=== PATIENT | female | born 1955 | race Two or more races ===

== ENCOUNTER → 2016-06-11 | Day surgery (SDC) | payer OTHER ==
[~2016-06-11] VITALS: Ht 157.5 cm; Wt 62.0 kg
[~2016-06-11] MED LIST: *LABETALOL HCL 100 MG/20 ML VIAL PERIprocedural Use ONLY ONE; ACETAMINOPHEN 1000 MG/100 ML VIAL IV ONE; ASPI325T PO; ATOR10TA15 PO; BUPIVACAINE/EPINEPHRINE 0.25% PF 30 ML VIAL INFIL ONE; BUPIVACAINE/EPINEPHRINE 0.25% PF 30 ML VIAL ONE; CALCTAB19 PO; CHLORHEXIDINE GLUCONATE 2 % 1 PACK (2 CLOTHS) TOPICAL PRN; CHLORHEXIDINE GLUCONATE 4% SOLN 120 ML BTL TOPICAL SCH; DO NOT ADM ANY ANTICOAGULANT DRUGS PRN; ENALAPRILAT 1.25 MG/ML VIAL ONE; FAMOTIDINE 20 MG/2 ML VIAL ONE; INSULIN HUMAN REGULAR 1,000 UNITS/10 ML VIAL SQ PRN; KETOROLAC TROMETHAMINE 30 MG/ML (IVP) VIAL IVP ONE; LACTATED RINGER'S 1000 ML IV PRN; LEVO50TA4 PO; LIDOCAINE HCL 1% 50 ML VIAL ONE; METF500T PO; METO50TA11 PO; METOPROLOL TARTRATE 25 MG TAB PO PRN; MIDAZOLAM HCL 2 MG/2 ML VIAL ONE; MORPHINE SULFATE 4 MG/ML INJ IV PUSH PRN; MULTTAB67 PO; ONDANSETRON HCL 4 MG/2 ML VIAL IV PRN; ONDANSETRON HCL 4 MG/2 ML VIAL IV PUSH ONE; PERC5TAB12 PO; POVIDONE IODINE 5% (ANTISEPSIS KIT) 4 APPLICATIONS EACH NARE PRN; PROPOFOL 200 MG/20 ML AMP IV ONE; SODIUM CHLORID 0.9% 500 ML IV PRN; SODIUM CHLORIDE 0.9% FLUSH 10 ML FLUSH IV FLUSH PRN; SODIUM CHLORIDE 0.9% FLUSH 10 ML FLUSH IV FLUSH SCH; VANCOMYCIN 1000 MG/NS 250 ML (for <70 kg) IV SCH; ceFAZolin 2 GM PREMIX 50 ML IV SCH; oxyCODONE/ACETAMINOPHEN 5 MG/325 MG TAB PO PRN
[2016-06-11 06:57] VITALS: BP 186/105; PULSE 57; RESP 20; TEMP 98; O2SAT 97
--- NOTE | 2016-06-11 09:56 | PD.OP ---
cc: Freddy Richards Jr., MD Operative Report Date of Surgery: Jun 11, 2016 Preoperative Diagnosis: left knee medial meniscal tear Postoperative Diagnosis: left knee posterior horn medial meniscal tear left knee anterior horn lateral meniscal radial tear Procedure: #1 left knee arthroscopy and posterior horn medial partial meniscectomy #2 left knee partial anterior horn lateral meniscectomy Anesthesia: gen Surgeon: Freddy Richards Sign Manufacturer(s): staff Resident Surgeon: alvaro Operation and Findings: PROCEDURE DETAILS: The patient was taken to the operating room. Monitored anesthesia care was induced. The left lower extremity was sterilely prepped and draped. Examination under anesthesia was normal. Arthroscope was introduced into the parapatellar working portal. The suprapatella pouch was found to have significant synovitis. There was one loose body that was removed. Using a shaver, a significant synovectomy was performed. The medial and lateral gutters were within normal limits without any loose bodies. The patellofemoral articulation tracked well with grade 2 outerbridge grade. The notch was examined and the anterior cruciate and posterior cruciate ligaments were normal. The medial compartment was inspected and hyaline cartilage surface where in poor condition with diffuse significant grade 4 degeneration with exposed subchondral bone and kissing lesions at the medial plateau and medial femoral condyle. A complex posterior horn medial meniscal tear was identified and this was debrided back to a smooth stable rim with the up-biting punch and the shaver. No other significant problems were identified. The anterior horn and the medial horn were inspected and were found to have multiple small degenerative tears. These tears were shaved back to a smooth and stable rim. Arthroscope was introduced into lateral compartment and here was a radial tear with horizontal cleavage component at the anterior horn. This was trimmed back appropriately. No incarcerated fragment were identified. The rest of the meniscus was normal. The wounds were copiously irrigated and closed with nylon. A sterile dressing was applied. The patient tolerated procedure very well. There were no complications. Freddy Richards Jr., MD Jun 11, 2016 09:56
[2016-06-11 13:25] VITALS: BP 135/78; PULSE 58; RESP 16; TEMP 97.7; O2SAT 96
--- NOTE | 2016-06-11 14:32 | EKG ---
Date Performed: 06/11/2016 Time Performed: 06:53:51 PTAGE: 61 years EKG: Sinus rhythm POSSIBLE RIGHT VENTRICULAR CONDUCTION DELAY BORDERLINE ECG PREVIOUS TRACING : 05/05/2015 11.30 Compared to prior tracing no significant change DOCTOR: Bhupinder Brandon Interpretating Date/Time 06/11/2016 14:27:25
== END | disposition home or self-care (01) ==
LOC: HSDC 06:05
PROVIDERS: ATTEND Orthopaedic Surgery
DX: S83.242A Other tear of medial meniscus, current injury, left knee, initial encounter (principal); S83.282A Other tear of lateral meniscus, current injury, left knee, initial encounter; I10 Essential (primary) hypertension
CPT/HCPCS: 01400; 29880; 86850; 86900; 86901; 93005; J0131; J1885; J2250; J2405; J3010; J3370; J7050; J7120